=== PATIENT | male | born 1955 | race Hispanic/Latino ===

== ENCOUNTER 2019-07-29 23:47 | Emergency (ER) | payer OTHER ==
[2019-07-30 00:37] LABS: Prothrombin Time 78.4 SEC (12.0-14.7)
== END 2019-07-30 00:57 ==
LOC: ERS 23:47 → EEVIPCON 23:47 → ERS 07-30 00:57
DX: R79.1 Abnormal coagulation profile (principal); B19.20 Unspecified viral hepatitis C without hepatic coma; I25.10 Atherosclerotic heart disease of native coronary artery without angina pectoris; N40.0 Benign prostatic hyperplasia without lower urinary tract symptoms; I49.9 Cardiac arrhythmia, unspecified; I48.91 Unspecified atrial fibrillation; E11.9 Type 2 diabetes mellitus without complications; K21.9 Gastro-esophageal reflux disease without esophagitis; Z79.899 Other long term (current) drug therapy; Z79.01 Long term (current) use of anticoagulants; Z79.4 Long term (current) use of insulin
CPT/HCPCS: 36415; 85610; 99283